=== PATIENT | male | born 1995 | race Caucasian/White ===

== ENCOUNTER 2016-11-07 15:53 | Emergency (ER) | payer OTHER ==
[2016-11-07] MEDS ORDERED: ACETAMINOPHEN 160 MG/5 ML UDCUP PO ONE (16:29)
[2016-11-07] MEDS ORDERED: DEXAMETHASONE 4 MG TAB PO ONE ×2 (17:44→17:49)
[2016-11-07] MEDS ORDERED: IBUPROFEN 600 MG TAB PO ONE (17:44)
--- NOTE | 2016-11-07 17:49 | EDPHY ---
H & P Time Seen by Provider: 11/07/16 17:24 HPI/ROS: CHIEF COMPLAINT: Sore throat HISTORY OF PRESENT ILLNESS: 21-year-old male presents to the emergency department with 1 day history of sore throat. Patient denies any known ill contacts or recent travel. He has felt feverish and chilled. He took Tylenol 1 hour prior to arrival. He denies dysphagia although has odynophagia. He denies chest pain or difficulty breathing. Denies any other URI symptoms. Denies neck pain. Denies abdominal pain. Denies rash. REVIEW OF SYSTEMS: Constitutional: As above Eyes: No double or blurry vision. ENT: Sore throat as above Respiratory: No cough, no shortness of breath. Cardiac: No chest pain. Gastrointestinal: No abdominal pain, vomiting or diarrhea. Genitourinary: No dysuria. Musculoskeletal: No neck or back pain. Skin: No rashes. Neurological: No headache. Past Medical/Surgical History: Negative Social History: Single Smoking Status: Current every day smoker Physical Exam: General Appearance: Alert, no distress. Temperature 38degrees, heart rate 109. No respiratory distress. Eyes: Pupils equal and round. Extraocular motions are all intact. ENT: Mouth: Mucous membranes moist. Muffled voice, no trismus. Posterior pharyngeal injection noted. Small exudate. No uvular swelling or shift. He is able to speak in full sentences. He is able to swallow his own saliva. Respiratory: No wheezing, rhonchi, or rales, lungs are clear to auscultation. Cardiovascular: Regular rate and rhythm. Gastrointestinal: Abdomen is soft and nontender, no masses, no rebound or guarding, bowel sounds normal. Neurological: Alert and oriented x 3, cranial nerves II through XII grossly intact Skin: Warm and dry, no rashes. Musculoskeletal: Nontender to palpate along the cervical, thoracic or lumbar spine. Neck is supple. No nuchal rigidity. No palpable lymphadenopathy. Extremities: Full range of motion and no peripheral edema. Psychiatric: Patient is oriented X 3, there is no agitation. Constitutional: Initial Vital Signs Temperature (C) 38 C 11/07/16 16:25 Heart Rate 109 H 11/07/16 16:25 Respiratory Rate 20 11/07/16 16:25 Blood Pressure 130/110 H 11/07/16 16:25 O2 Sat (%) 93 11/07/16 16:25 O2 Delivery Mode Room Air Allergies/Adverse Reactions: No Known Allergies Allergy (Unverified 11/07/16 16:25) Home Medications: Medication Instructions Recorded Lexapro 11/07/16 Penicillin V Potassium 500 mg PO BID #20 tablet 11/07/16 Remeron 11/07/16 Medical Decision Making ED Course/Re-evaluation: 21-year-old male presents to the emergency department with sore throat. He has a positive strep screen. The patient declined an IV. He would like to try to swallow oral pills. He was given 600 mg of ibuprofen p. o. and 8 mg Decadron p.o.. Patient tolerated oral medication. He was discharged with Pen-VK 500 twice daily for 10 days. He was also encouraged discard toothbrush in 48 hours. He was instructed to return if he developed recurring fever, vomiting, increasing pain or swelling, difficulty swallowing, or if he felt worse in any way. Patient verbalized understanding and agreed. Differential Diagnosis: Including but not limited to strep pharyngitis, mononucleosis, peritonsillar abscess, retropharyngeal abscess - Data Points Laboratory Results: 11/07/16 16:25 Group A Strep Screen POSITIVE H (NEGATIVE) Medications Given: Discontinued Medications Acetaminophen (Tylenol 160mg/5ml Oral Liquid) 1,000 mg PO EDNOW ONE Stop: 11/07/16 16:30 Last Admin: 11/07/16 16:36 Dose: 1,000 mg Dexamethasone (Decadron) 10 mg PO EDNOW ONE Stop: 11/07/16 17:50 Last Admin: 11/07/16 18:06 Dose: 10 mg Ibuprofen (Motrin) 600 mg PO EDNOW ONE Stop: 11/07/16 17:45 Last Admin: 11/07/16 18:06 Dose: 600 mg Departure - Departure Disposition: Home, Routine, Self-Care Clinical Impression: Strep pharyngitis Condition: Good Instructions: Strep Throat (ED) Additional Instructions: Penicillin twice daily for 10 days. Drink plenty of fluids. Return to the emergency department if you cannot drink water, cannot swallow your own spit, or if you feel worse in any way. Discard toothbrush after you have been on antibiotics for 48 hours and after you have completed antibiotics in 10 days. Adult Pain & Fever Control: We recommend Acetaminophen (Tylenol) and Ibuprofen (Motrin,Advil) for pain and fever control. When fever is high or pain severe, both drugs can be used at the same time, but at different intervals. Please note the time differences. Your dose is: Acetaminophen 1000mg every 4 to 6 hours Ibuprofen 600mg every 8 hours with food Note: do not take Acetaminophen with Hydrocodone (Vicodin, Lortab) or Oycodone (Percocet). These medications also contain Acetaminophen. No more than 3000mg of Acetaminophen should be taken in 24 hours (for an adult). 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
[2016-11-07 18:47] VITALS: BP 128/90; PULSE 88; RESP 16; TEMP 100.2; O2SAT 97
== END 2016-11-07 18:47 | disposition home or self-care (01) ==
DX: J02.0 Streptococcal pharyngitis (principal); F17.200 Nicotine dependence, unspecified, uncomplicated

== ENCOUNTER 2017-02-04 20:05 | Emergency (ER) | payer OTHER ==
[2017-02-04 20:12] VITALS: TEMP 98.2
--- NOTE | 2017-02-04 20:33 | EDPHY ---
H & P Stated Complaint: TOOTH PAIN L LOWER Time Seen by Provider: 02/04/17 20:32 HPI/ROS: HPI: This is a 21-year-old male who presents with Chief Complaint: TOOTH PAIN L LOWER Location: Left lower tooth Quality: Pain Duration: Two days Signs and Symptoms: No jaw swelling, no fever, no radiation, no ear pain, + sensitivity to hot and cold foods Timing: Sudden, constant Severity: 12/12 Context: Patient has a history of depression presents with left lower tooth pain x2 days. Reports sensitivity to hot and cold foods. Denies fever, jaw swelling, trismus. He has not called his dentist as it is the weekend. Of note he had his wisdom teeth removed 2 weeks ago but reports that several days later he was feeling completely fine. He has not tried any [id number] Tylenol or NSAIDs for the pain. Modifying Factors: Comment: ROS: see HPI Constitutional: No fever, no chills, no weight loss Eyes: No blurred vision Respiratory: No shortness of breath, no cough Cardiovascular: No chest pain Gastrointestinal: No nausea, no vomiting, no diarrhea Genitourinary: No dysuria Extremities: No myalgias Neurologic: No weakness, no numbness Skin: No rashes Hematologic: No bruising, no bleeding MEDICAL/SURGICAL/SOCIAL HISTORY: Medical history: Depression Surgical history: [place] teeth removal Social history: Student. CONSTITUTIONAL: Well-developed, well-nourished young adult white male, awake and alert, no obvious distress HEENT: Atraumatic and normocephalic, PERRL, EOMI. Tympanic membranes clear. Oropharynx clear, tooth #19, no darkening/gingival swelling/fluctuant area in the gum/jaw swelling but it is tender to palpation. No malocclusion. no exudate and moist pink mucosa. Airway patent. No lymphadenopathy. No meningismus. Cardiovascular: Normal S1/S2, regular rate, regular rhythm, without murmur rub or gallop. PULMONARY/CHEST: Symmetrical and nontender. Clear to auscultation bilaterally. Good air movement. No accessory muscle usage. ABDOMEN: Soft, nondistended, nontender, no rebound, no guarding, no peritoneal signs, no masses or organomegaly. No CVAT. EXTREMITIES: 2/2 pulses, strength 5/5, no deformities, no clubbing, no cyanosis or edema. NEUROLOGICAL: no focal neuro deficits. GCS 15. SKIN: Warm and dry, no erythema. no rash. Good capillary refill. Source: Patient Exam Limitations: No limitations - Personal History Current Tetanus Diphtheria and Acellular Pertussis (TDAP): Unsure - Medical/Surgical History Hx Asthma: No Hx Chronic Respiratory Disease: No Hx Diabetes: No Hx Cardiac Disease: No Hx Renal Disease: No Hx Cirrhosis: No Hx Alcoholism: No Hx HIV/AIDS: No Hx Splenectomy or Spleen Trauma: No Other PMH: WISDOM TEETH SX TW WEEKS PRIOR - Social History Smoking Status: Former smoker Constitutional: Initial Vital Signs Temperature (C) 36.8 C 02/04/17 20:10 Heart Rate 73 02/04/17 20:10 Respiratory Rate 18 02/04/17 20:10 Blood Pressure 136/97 H 02/04/17 20:10 O2 Sat (%) 95 02/04/17 20:10 O2 Delivery Mode Room Air Allergies/Adverse Reactions: No Known Allergies Allergy (Unverified 11/07/16 16:25) Home Medications: Medication Instructions Recorded Lexapro 11/07/16 Remeron 11/07/16 Amoxicillin Trihydrate 500 mg PO TID 7 Days cap 02/04/17 [Amoxicillin] Medical Decision Making Procedures: Procedure: Dental block The patient's tooth was located #19; left lower. I obtained verbal consent from the patient to perform dental block who was informed about the possibility of bleeding and pain. The tooth #19 was anesthetized using bupivacaine, 4 mL, in the buccal mucosa at the gingival line. Patient experienced immediate relief of pain. The patient tolerated the procedure well. The procedure was performed by myself. ED Course/Re-evaluation: Dental block performed with adequate anesthesia Amoxicillin given No signs of periapical abscess/airway compromise/Chato's angina Advised go to dentist LAMAR This patient was seen under the supervision of my secondary supervising physician. I evaluated care for this patient independently. Patient's presentation, labs/imaging, treatment and plan of care were discussed with secondary supervising physician. Differential Diagnosis: Differential diagnosis includes but is not limited to dental cavity, dry socket , periapical abscess, Chato's angina. Departure - Departure Disposition: Home, Routine, Self-Care Clinical Impression: Toothache Condition: Good Instructions: Toothache (ED), Dental Caries (ED), Dental Abscess (ED) Additional Instructions: Take Tylenol and/or ibuprofen as needed for pain. Complete entire antibiotic course. Apply an ice pack to the jaw that is giving you discomfort. Eat a soft bland diet until pain free. Follow-up with your dentist as soon as possible. Referrals: NONE *PRIMARY CARE P,. [Primary Care Provider] - As per Instructions [facility],. [Clinic] - As per Instructions Prescriptions: Amoxicillin Trihydrate [Amoxicillin] 500 mg PO TID 7 Days cap
[2017-02-04 21:24] VITALS: BP 128/88; PULSE 89; RESP 19; O2SAT 96
== END 2017-02-04 21:24 | disposition home or self-care (01) ==
PROC: 3E0X3BZ Introduction of Anesthetic Agent into Cranial Nerves, Percutaneous Approach (ICD-10-PCS; principal; 2017-02-04)
DX: K08.89 Other specified disorders of teeth and supporting structures (principal); Z87.891 Personal history of nicotine dependence

== ENCOUNTER 2017-04-14 18:04 | Emergency (ER) | payer OTHER ==
[2017-04-14] MEDS ORDERED: NS 1,000 ML IV ONE ×2 (18:28→18:53)
[2017-04-14] MEDS ORDERED: PROMETHAZINE HCL 25 MG/ML INJ IVP ONE (18:29)
--- NOTE | 2017-04-14 18:33 | EDPHY ---
H & P Time Seen by Provider: 04/14/17 18:11 HPI/ROS: CHIEF COMPLAINT: Vomiting HISTORY OF PRESENT ILLNESS: 21-year-old male presents to the emergency department by private vehicle with multiple episodes of nausea and vomiting. Symptoms began last evening. He has vomited he thinks at least over 10 times. No diarrhea. No abdominal pain. He still continues to feel nauseous. No chest pain or difficulty breathing. He has mild rhinorrhea and nasal congestion. Occasional cough. No recent travel. No known ill contacts. No fevers or chills. No urinary symptoms. No back pain. No neck pain or headache. REVIEW OF SYSTEMS: Constitutional: No fever, no chills. Eyes: No double or blurry vision. ENT: No sore throat. Respiratory: cough, no shortness of breath. Cardiac: No chest pain. Gastrointestinal: Vomiting as above. No abdominal pain or diarrhea Genitourinary: No dysuria. Musculoskeletal: No neck or back pain. Skin: No rashes. Neurological: No headache. Past Medical/Surgical History: Negative Social History: Single Smoking Status: Former smoker Physical Exam: General Appearance: Alert, no distress. Afebrile. No apparent distress. Eyes: Pupils equal and round. Extraocular motions are all intact. ENT: Mouth: Mucous membranes slightly dry Respiratory: No wheezing, rhonchi, or rales, lungs are clear to auscultation. Cardiovascular: Regular rate and rhythm. Gastrointestinal: Abdomen is soft and nontender, no masses, no rebound or guarding, bowel sounds normal. No CVA tenderness bilaterally. Neurological: Alert and oriented x 3, cranial nerves II through XII grossly intact Skin: Warm and dry, no rashes. Musculoskeletal: Nontender to palpate along the cervical, thoracic or lumbar spine. Neck is supple. Extremities: Full range of motion and no peripheral edema. Psychiatric: Patient is oriented X 3, there is no agitation. Constitutional: Initial Vital Signs Temperature (C) 36.9 C 04/14/17 18:06 Heart Rate 89 04/14/17 18:06 Respiratory Rate 16 04/14/17 18:06 Blood Pressure 113/99 H 04/14/17 18:06 O2 Sat (%) 95 04/14/17 18:06 O2 Delivery Mode Room Air Allergies/Adverse Reactions: No Known Allergies Allergy (Verified 04/14/17 18:05) Home Medications: Medication Instructions Recorded Lexapro 11/07/16 Remeron 11/07/16 Medical Decision Making ED Course/Re-evaluation: Healthy 21-year-old male presents to the emergency department with multiple episodes of nausea vomiting. Patient does not appear toxic or ill. Laboratory studies reveal white blood cell count of 10.4. Chemistries reveal CO2 slightly low at 20. Patient received IV normal saline x2 L. he has a history of depression and takes Lexapro and therefore was not given Zofran IV. Patient was given Phenergan 12.5 mg IV. Patient's abdomen is benign. I do not think imaging studies are indicated. He has no pain with palpation to the abdomen. Clinically I explained to the patient that he could also have influenza. He does not have a history of asthma. No history of pneumonia. His lungs are clear to auscultation. I explained the rationale for not testing for influenza since I do not think Tamiflu is indicated. Patient tolerated p. o. fluids and will be discharged. Differential Diagnosis: Including but not limited to influenza, gastritis, upper respiratory infection, pneumonia, bronchitis, electrolyte abnormality, dehydration - Data Points Laboratory Results: Laboratory Results 04/14/17 18:20 04/14/17 18:20 04/14/17 04/14/17 18:20 18:20 WBC 10.48 10^3/uL H 10^3/uL (3.80-9.50) RBC 6.04 10^6/uL 10^6/uL (4.40-6.38) Hgb 17.2 g/dL g/dL (13.7-17.5) Hct 50.7 % % (40.0-51.0) MCV 83.9 fL fL (81.5-99.8) MCH 28.5 pg pg (27.9-34.1) MCHC 33.9 g/dL g/dL (32.4-36.7) RDW 12.8 % % (11.5-15.2) Plt Count 214 10^3/uL 10^3/uL (150-400) MPV 9.9 fL fL (8.7-11.7) Neut % (Auto) 79.4 % H % (39.3-74.2) Lymph % (Auto) 11.5 % L % (15.0-45.0) [place] % (Auto) 8.2 % % (4.5-13.0) Eos % (Auto) 0.1 % L % (0.6-7.6) Baso % (Auto) 0.4 % % (0.3-1.7) Nucleat RBC Rel Count 0.0 % % (0.0-0.2) Absolute Neuts (auto) 8.33 10^3/uL H 10^3/uL (1.70-6.50) Absolute Lymphs (auto) 1.20 10^3/uL 10^3/uL (1.00-3.00) Absolute Monos (auto) 0.86 10^3/uL H 10^3/uL (0.30-0.80) Absolute Eos (auto) 0.01 10^3/uL L 10^3/uL (0.03-0.40) Absolute Basos (auto) 0.04 10^3/uL 10^3/uL (0.02-0.10) Absolute Nucleated RBC 0.00 10^3/uL 10^3/uL (0-0.01) Immature Gran % 0.4 % % (0.0-1.1) Immature Gran # 0.04 10^3/uL 10^3/uL (0.00-0.10) Sodium 145 mEq/L mEq/L (135-145) Potassium 4.3 mEq/L mEq/L (3.5-5.2) Chloride 106 mEq/L mEq/L (97-110) Carbon Dioxide 20 mEq/l L mEq/l (22-31) Anion Gap 19 mEq/L H mEq/L (8-16) BUN 11 mg/dL mg/dL (7-23) Creatinine 0.9 mg/dL mg/dL (0.7-1.3) Estimated GFR > 60 Glucose 101 mg/dL H mg/dL (70-100) Calcium 10.4 mg/dL mg/dL (8.5-10.4) Medications Given: Discontinued Medications Sodium Chloride (Ns) 1,000 mls @ 0 mls/hr IV ONCE ONE PRN Reason: Wide Open Stop: 04/14/17 18:29 Last Admin: 04/14/17 18:33 Dose: 1,000 mls Sodium Chloride (Ns) 1,000 mls @ 0 mls/hr IV ONCE ONE PRN Reason: Wide Open Stop: 04/14/17 18:54 Last Admin: 04/14/17 19:04 Dose: 1,000 mls Promethazine HCl (Phenergan) 12.5 mg IVP EDNOW ONE Stop: 04/14/17 18:30 Last Admin: 04/14/17 18:41 Dose: 12.5 mg Departure - Departure Disposition: Home, Routine, Self-Care Clinical Impression: Dehydration Vomiting Qualifiers: Vomiting type: unspecified Vomiting Intractability: non-intractable Nausea presence: with nausea Qualified Code(s): R11.2 - Nausea with vomiting, unspecified Condition: Good Instructions: Dehydration (ED), Acute Nausea and Vomiting (ED) Additional Instructions: Clear liquids and slowly advance diet as tolerated. Return to the emergency department if you feel short of breath, if you develop abdominal pain, if you develop recurring vomiting, diarrhea, or any other concerns. Referrals: Juan Jaramillo MD [Medical Doctor] - 2-3 days, if not improved (Primary care provider metal [facility])
[2017-04-14 18:37] LABS: PLATELET COUNT 214 10^3/uL (150-400)
[2017-04-14 18:50] VITALS: TEMP 99
[2017-04-14 20:04] VITALS: BP 156/94; PULSE 96; RESP 18; O2SAT 93
== END 2017-04-14 20:02 | disposition home or self-care (01) ==
DX: R11.2 Nausea with vomiting, unspecified (principal); E86.0 Dehydration; Z87.891 Personal history of nicotine dependence
CPT/HCPCS: 96374; J2550